=== PATIENT | male | born 2000 | race Hispanic/Latino ===

== ENCOUNTER 2018-11-24 09:26 | Emergency (ER) | payer BC ==
[~2018-11-24] VITALS: Ht 177.8 cm; Wt 68.0 kg
[2018-11-24] MEDS ORDERED: IBUPROFEN600 MG PO (09:48)
[2018-11-24] MEDS ORDERED: NORCO 5-325 TA1 EACH PO (09:48)
== END 2018-11-24 10:20 | disposition home or self-care (01) ==
LOC: ED 09:26
DX: S43.102A Unspecified dislocation of left acromioclavicular joint, initial encounter (principal); Z87.891 Personal history of nicotine dependence; W19.XXXA Unspecified fall, initial encounter
CPT/HCPCS: 73030; 99283